=== PATIENT | female | born 1985 | race Caucasian/White ===

== ENCOUNTER → 2019-07-24 13:18 | Outpatient (CLI) | payer OTHER, SELFPAY ==
--- NOTE | ~2019-07-24 | CT_ITS ---
EXAMINATION: CT abdomen wo/w con DATE: 07/24/2019 13:45 INDICATION: Abdomen and epigastric pain TECHNIQUE: Computed tomography (CT) of the abdomen and pelvis was performed without and with 100 cc O mnipaque 350 intravenous contrast. The dose-length product was 228.87 mGy-cm. Automated exposure cont rol and iterative reconstruction technique were employed. COMPARISON: CT dated 07/15/2016 FINDINGS: Heart size is normal. No significant pleural or pericardial effusion. No significant vascul ar abnormality. No lymphadenopathy. The liver, spleen, pancreas, adrenal glands and kidneys are unremarkable. Gallbladder is present. No free air or free fluid. There are scattered fluid-filled distended small bowel loops which are nonspe cific, although could be associated with enteritis in the appropriate clinical setting. No obstructio n. No renal stones or hydronephrosis. Gallbladder is present. No acute osseous abnormality. IMPRESSION: 1. Scattered fluid-filled distended small bowel loops which are nonspecific, although could be associ ated with enteritis in the appropriate clinical setting. No obstruction. Reviewed, dictated and finalized at location A. IMPRESSION: 1. Scattered fluid-filled distended small bowel loops which are nonspecific, al though could be associated with enteritis in the appropriate clinical setting. No obstruction.
== END ==
PROVIDERS: Visit Provider Physician Assistant Medical
DX: R10.9 Unspecified abdominal pain (principal); R93.89 Abnormal findings on diagnostic imaging of other specified body structures
CPT/HCPCS: 74170; Q9967

== ENCOUNTER → 2019-07-28 09:33 | Outpatient (CLI) | payer OTHER, SELFPAY ==
--- NOTE | ~2019-07-28 | MR_ITS ---
EXAMINATION: MR brain/brain stem wo con DATE: 07/28/2019 10:15 INDICATION: Multiple sclerosis. New event. Dizziness and headache. TECHNIQUE: Magnetic resonance imaging (MRI) of the brain and brainstem was performed without intraven ous contrast. Sequences included sagittal and axial T1-weighted FLAIR, axial T1-weighted FSE, axial d iffusion-weighted FS EPI, sagittal T2-weighted FLAIR, axial T2*-weighted GRE, axial T2-weighted FLAIR Propeller, and axial T2-weighted Propeller. Apparent diffusion coefficient (ADC) maps were created. COMPARISON: None. FINDINGS: There is a single focus of increased T2-weighted signal intensity in the left frontal lobe deep white matter, which is normal as an isolated finding. There is no intracranial hemorrhage, acute infarction, or abnormal intracranial mass lesion. The ventricles are normal in size. There is mucosa l thickening in the paranasal sinuses. There is a trace right mastoid effusion. The orbits are normal . IMPRESSION: 1. Normal brain. Reviewed, dictated and finalized at location A. IMPRESSION: 1. Normal brain.
== END ==
PROVIDERS: PCP Internal Medicine
DX: R20.2 Paresthesia of skin (principal)
CPT/HCPCS: 70551

== ENCOUNTER 2021-08-19 00:04 | Day surgery (SDC) | payer OTHER, SELFPAY ==
[2021-08-04 14:12] VITALS: BMI 20.9
[2021-08-19 07:37] VITALS: BP 106/46; PULSE 51; RESP 16; TEMP 36.7; O2SAT 100; BMI 21.7
[2021-08-19] MEDS: LACTATED RINGERS 1,000 ML 150 ML IV CONT (08:56)
--- NOTE | 2021-08-19 08:57 | P.PNAN_ITS ---
Anes - Initial Pre Proc Eval Procedure: Operation Date: 08/19/21 10:00 Proposed Procedures p Esophagogastroduodenoscopy - Arsh House MD Date/Time: 08/19/21 08:57 Surgeon: Arsh House MD Pre Op Diagnosis: Epigastric pain Patient Data Age: 36 Gender: F Height: 1.68 m Weight: 60.9 kg Last Vital Signs Temp 36.7 C 08/19/21 07:37 Pulse 51 L 08/19/21 07:37 Resp 16 08/19/21 07:37 BP 106/46 L 08/19/21 07:37 Pulse Ox 100 08/19/21 07:37 Allergies Allergy/AdvReac Type Severity Reaction Status Date / Time morphine Allergy Rash Verified 08/19/21 08:39 Home Medications Medication Instructions Recorded Confirmed Type No Home Medications 06/19/21 08/19/21 History Patient hx anesthesia problems: none Family hx anesthesia problems: none Results Review: All pre-operative results and documents have been reviewed as part of the pre-operative evaluation. [facility] Past Medical History Medical History (Updated 08/18/21 @ 14:41 by Kang Gaona DO) Anemia Paresthesia Tachycardia Social History Social History (Updated 06/19/21 @ 09:24 by Sonja Bradshaw CMA) Smoking status: Never smoker Alcohol intake: current Drinks per week: 3 Alcohol use details: social Substance use: never Living arrangements: with family Spiritual care concerns: No Anes - Eval Final PreProcedure Day of Procedure 08/19/21 08:57 Patient weight: normal Heart: regular rate and rhythm Lungs: clear to auscultation and normal air movement Airway: Mallampati scale class II Neurological: alert and oriented Last oral intake: >/= 8 hours ASA classification: II Emergent: no Anesthetic plan: proceed Anesthesia type and monitoring: general GIVS and standard monitoring Results Review: All pre-operative results and documents have been reviewed as part of the pre-operative evaluation. Informed Consent: The patient's anesthetic plan and its attendant risks and benefits were discussed with the patient/family/POA. Questions were solicited and answers provided to the satisfaction of the patient/family/POA.
--- NOTE | 2021-08-19 09:24 | PM.HPGS ---
History of Present Illness History of Present Illness Consent: Risks, benefits, and alternatives have been discussed and questions answered. Patient agrees to proceed with procedure. Chief complaint: Epigastric pain Narrative: Mariza Muñiz is a 36 year old female with intermittent epigastric pain, trial of ppi did not help, never had egd. Review of Systems Constitutional: Constitutional: Denies headache(s) and Denies weakness Eyes: Eyes: Denies blurry vision ENT: Reports Normal hearing present, Denies headache(s) and Denies neck pain Cardiovascular: Cardiovascular: Denies chest pain and Denies dyspnea Respiratory: Respiratory: Denies dyspnea Gastrointestinal: Gastrointestinal: Reports no additional gastrointestinal complaints Genitourinary: Genitourinary: Denies dysuria Musculoskeletal: Musculoskeletal: Denies neck pain Integumentary/Breasts: Skin/Breast: Denies dry skin Neurologic: Reports Normal hearing present, Denies headache(s) and Denies weakness Psychiatric: Psychiatric: Denies anxiety Endocrine: Endocrine: Denies change in body appearance Hematologic/Lymphatic: Hematologic/Lymphatic: Denies easy bleeding Allergic/Immunologic: Allergic/Immunologic: Denies urticaria PMFSH Past Medical History Medical History (Updated 08/19/21 @ 09:25 by Arsh House MD) Anemia Epigastric pain Paresthesia Tachycardia Social History Social History (Updated 06/19/21 @ 09:24 by Sonja Bradshaw CMA) Smoking status: Never smoker Alcohol intake: current Drinks per week: 3 Alcohol use details: social Substance use: never Living arrangements: with family Spiritual care concerns: No Meds Home Medications and Allergies Home Medications Medication Instructions Recorded Confirmed Type No Home Medications 06/19/21 08/19/21 History Allergies Allergy/AdvReac Type Severity Reaction Status Date / Time morphine Allergy Rash Verified 08/19/21 08:39 Vital Signs Vital Signs - 24 hr 08/19/21 07:37 Temperature 98.0 F Pulse Rate 51 L Respiratory Rate 16 Blood Pressure 106/46 L Pulse Oximetry 100 Exam Const: General: comfortable and no acute distress HENMT: General nose exam: Normal nares present Eyes: General: appearance normal, both eyes and all related structures Neck: Neck: no JVD Resp: Auscultation: clear to auscultation bilaterally Cardio: Rate: regular rate Rhythm: regular rhythm GI: Inspection: non-distended GI Palp: Yes Soft to palpation Skin: General skin exam: normal color Neuro: General: gait normal Speech: normal speech Extrem: General: normal to inspection Psych: Mental Status: mental status grossly normal Assessment and Plan Assessment and plan (1) Epigastric pain: Code(s): R10.13 - Epigastric pain Status: Acute Assessment and Plan: egd with bx
[2021-08-19 09:36] VITALS: BP 98/61; PULSE 57; RESP 21; O2SAT 98
[2021-08-19 09:46] VITALS: BP 103/70; PULSE 72; RESP 18; O2SAT 98
[2021-08-19 09:56] VITALS: BP 97/63; PULSE 63; RESP 20; O2SAT 100
== END 2021-08-19 10:08 | disposition home or self-care (01) ==
PROVIDERS: PCP Internal Medicine; Visit Provider Internal Medicine Gastroenterology
PROC: 0DJ08ZZ Inspection of Upper Intestinal Tract, Via Natural or Artificial Opening Endoscopic (ICD-10-PCS; CPT 43235; principal; 2021-08-19 10:00)
DX: R10.13 Epigastric pain (principal)
CPT/HCPCS: 43239; 88305; J2704; J7120